=== PATIENT | female | born 1980 | race Caucasian/White ===

== ENCOUNTER 2017-10-17 15:39 | Inpatient (IN) | payer OTHER ==
[~2017-10-17] VITALS: Ht 167.6 cm; Wt 71.7 kg
--- NOTE | 2017-10-17 09:50 | MH ---
cc: Elena Babin MD DATE OF ADMISSION: 10/17/2017 REASON FOR ADMISSION: She is being admitted today for induction of labor due to decreased SAGRARIO. HISTORY OF PRESENT ILLNESS: She is 36 years old, 2, para 1-0-0-1, intrauterine at 40 weeks and 3 days. SAGRARIO was 6.6 cm. care has been with [facility]. Significant for thrombocytopenia. Last platelet count was 107. Her Group B Strep was negative. Her GCT was normal. PAST OBSTETRIC HISTORY: She had one vaginal delivery at 41 weeks in 2016. PAST GYNECOLOGIC HISTORY: She had a negative Pap smear in November of 2016. PAST MEDICAL HISTORY: She has a history of urinary tract infection, but denies hypertension, diabetes, or asthma. PAST SURGICAL HISTORY: She had eye surgery at the age of 13. SOCIAL HISTORY: She denies toxic habits. MEDICATIONS: She takes vitamins. ALLERGIES: SHE IS ALLERGIC TO ALOE, DIPHENHYDRAMINE, EMOXYPINE. PHYSICAL EXAMINATION: VITAL SIGNS: Stable. She is afebrile. Blood pressure is 100/62. She is 156 pounds. HEAD, HEART, CHEST, LUNG EXAMS: Within normal limits. ABDOMEN: Soft, nontender, gravid. PELVIC EXAM: The cervix is 1 cm dilated, 50 percent effaced, -1 station. EXTREMITIES: No cyanosis, clubbing or edema. ASSESSMENT AND PLAN: 1. She is a 36 years old, 2, para 1, intrauterine at 40 weeks, 3 days with a history of low amniotic fluid index of 6.6 cm. 2. Right breast mass, which will be followed . 3. Thrombocytopenia. She will be admitted for Cervidil cervical ripening. Risks, benefits, and alternatives have been explained. All of her questions have been answered. MD SHRUTI Burger/KETTY , 09:32 AM , 09:49 AM
[~2017-10-17 15:39] MED LIST: IBUP600 PO
[2017-10-17] MEDS ORDERED: PREN29TA PO (18:27)
[2017-10-17] MEDS ORDERED: LACTATED RINGER'S 1000 ML INJ 1,000 ML IV SCH (19:30)
[2017-10-17] MEDS ORDERED: SODIUM CHLORIDE 0.9% FLUSH 10 ML FLUSH IV FLUSH PRN ×2 (19:30)
[2017-10-17] MEDS ORDERED: DINOPROSTONE 10 MG INSERT-LEAVE FOR 12 HOURS VAGINAL ONE (19:30)
[2017-10-17] MEDS ORDERED: NS 1000 ML OTHER PRN (19:30)
[2017-10-17] MEDS ORDERED: PHARMACY INFORMATION OTHER NR (19:30)
[2017-10-17 22:01] LABS: HEMATOCRIT 38.2 % (35.0-46.0); HEMOGLOBIN 12.7 GM/DL (11.6-15.3); MEAN CELL VOLUME 87.2 FL (80.0-100.0); MEAN CORPUSCULAR HEMOGLOBIN 28.9 PG (27.0-34.0); MEAN CORPUSCULAR HGB CONC 33.1 % (32.0-36.0); MEAN PLATELET VOLUME 12.7 FL (7.0-11.0); PLATELET COUNT 109 TH/MM3 (150-450); RED BLOOD COUNT 4.39 MIL/MM3 (4.00-5.30); RED CELL DISTRIBUTION WIDTH 13.8 % (11.6-17.2); WHITE BLOOD COUNT 9.7 TH/MM3 (4.0-11.0)
[2017-10-17] MEDS ORDERED: ONDANSETRON ODT 4 MG TAB PO PRN (23:15)
[2017-10-17] MEDS ORDERED: OXYTOCIN 30 UNITS 500ML PREMIX IV ONE (23:15)
[2017-10-17] MEDS ORDERED: NS 1000 ML IV PRN (23:15)
[2017-10-17] MEDS ORDERED: CITRIC ACID-SODIUM CITRATE LIQ 30 ML UDC PO SCH (23:15)
[2017-10-17] MEDS ORDERED: LIDOCAINE HCL 1% 50 ML VIAL INFIL PRN (23:15)
[2017-10-17] MEDS ORDERED: LIDOCAINE HCL 1% 50 ML VIAL I-DERMAL PRN (23:15)
[2017-10-17] MEDS ORDERED: LACTATED RINGER'S 1000 ML IV SCH (23:15)
[2017-10-17] MEDS ORDERED: MINERAL OIL 10 ML VIAL TOPICAL PRN (23:15)
[2017-10-17] MEDS ORDERED: NS 500 ML BOLUS IV PRN (23:15)
[2017-10-17] MEDS ORDERED: LACTATED RINGER'S 1000 ML BOLUS IV PRN (23:15)
--- NOTE | 2017-10-18 08:57 | PD.LABORPN ---
Subjective Subjective pt comfortable Objective Vital Signs vss afeb Objective Pelvic Exam: Cervix: [-] Dilatation: [-] 2-3 Effacement: [-] 50 Station: [-] -1 Presentation: [-] vtx Membranes: [intact or ruptured] arom clear Uterine Contractions: [-] irreg FHT's: Category: [-] 1 Baseline: [-] Reactive: [-] R Variability: [-] Decels: [-] Weeks Gestation: 40 Gest Age Assessed Date: Oct 18, 2017 Gest Age Assessed Time: 08:56 Pt started active labor?: No Medical induction of labor?: Yes Medical induction start date: October 17, 2017 Medical induction start time: 21:00 Artificial rupture of membrane: Yes Artificial ROM date: Oct 18, 2017 Artifical ROM time: 07:40 Assessment/Plan Problem List: (1) state, incidental ICD Codes: Z33.1 - state, incidental Assessment and Plan 40 wks, thrombocytopenia, plts 109 arom , pit, analgesia prn, anticipate Elena Babin MD Oct 18, 2017 08:57
[2017-10-18] MEDS ORDERED: OXYTOCIN 30 UNITS-500ML PREMIX 500 ML IV PRN (09:00)
[2017-10-18] MEDS ORDERED: ePHEDrine/NS 25 MG/5 ML SYRINGE ONE (11:02)
[2017-10-18] MEDS ORDERED: fentaNYL 2MCG-BUPIV 0.125% INJ 150 ML EPIDURAL ONE (11:02)
[2017-10-18] MEDS ORDERED: LIDOCAINE 1.5%/EPINEPHrine 1:200,000 PF 5 ML AMP ONE (11:19)
[2017-10-18] MEDS ORDERED: NO SYSTEM NARCOTICS PRN (12:45)
[2017-10-18] MEDS ORDERED: DO NOT ADMINISTER ANTICOAGULANTS PRN (12:45)
[2017-10-18] MEDS ORDERED: fentaNYL 2MCG-BUPIV 0.125% 150 ML EPIDURAL PRN (12:45)
[2017-10-18] MEDS ORDERED: ePHEDrine/NS 25 MG/5 ML SYRINGE IV PUSH PRN (12:45)
[2017-10-18 15:15] LABS: BILIRUBIN, URINE NEG (NEG); BLOOD, URINE NEG (NEG); GLUCOSE,URINE NEG (NEG); KETONE, URINE 40 mg/dL (NEG); MUCUS URINE FEW /lpf (OCC); NITRITE,URINE NEG (NEG); SQUAMOUS EPITHELIAL CELL URINE 1 /hpf (0-5); URINE COLOR YELLOW (YELLW/STRAW); URINE LEUKOCYTE ESTERASE NEG (NEG)
--- NOTE | 2017-10-18 16:02 | PD.OB.DELI ---
Weeks gestation: 40 Gest age assessed date: Oct 18, 2017 Gest age assessed time: 08:56 Pt started active labor?: No Medical induction of labor?: Yes Medical induction start date: October 17, 2017 Medical induction start time: 21:00 Artificial rupture of membrane: Yes Artificial ROM date: Oct 18, 2017 Artifical ROM time: 07:40 Anesthesia: Epidural Episiotomy: None Vaginal Delivery: Normal Presentation: Occiput anterior (MARY BETH) Nuchal Cord: x1 Delayed cord clamping (45 sec): Yes : Male Delivery date: Oct 18, 2017 Delivery time: 15:35 One Minute : 7 Five Minute : 8 Placenta: Spontaneous delivery Laceration: 2 deg Repair: Chromic interrupted, Vicryl running Estimated blood loss: 300cc Elena Babin MD Oct 18, 2017 16:02
[2017-10-18] MEDS ORDERED: BENZOCAINE 20% TOPICAL SPRAY 60 ML CAN TOPICAL PRN (16:15)
[2017-10-18] MEDS ORDERED: DOCUSATE SODIUM 50 MG/SENNA 8.6 MG TAB PO PRN (16:15)
[2017-10-18] MEDS ORDERED: IBUPROFEN 800 MG TAB PO PRN (16:15)
[2017-10-18] MEDS ORDERED: SODIUM CHLORIDE 0.9% FLUSH 10 ML FLUSH IV FLUSH PRN (16:15)
[2017-10-18] MEDS ORDERED: ONDANSETRON ODT 4 MG TAB PO PRN (16:15)
[2017-10-18] MEDS ORDERED: ALUMINUM/MAGNESIUM/SIMETH 30 ML CUP PO PRN (16:15)
[2017-10-18] MEDS ORDERED: WITCH HAZEL 50%/GLYCERIN 12.5% 40 PAD JAR TOPICAL PRN (16:15)
[2017-10-18] MEDS ORDERED: ACETAMINOPHEN 325 MG TAB PO PRN (16:15)
[2017-10-18] MEDS ORDERED: OXYTOCIN 30 UNITS-500ML PREMIX 500 ML IV SCH (16:30)
[2017-10-18] MEDS ORDERED: MEASLES, MUMPS, RUBELLA VACCINE 0.5 ML VIAL SQ ONE (16:30)
[2017-10-18] MEDS ORDERED: DIPHTH/TETANUS/ACEL PERTUSSIS (BOOSTER) 0.5 ML VIAL/PFS IM ONE (16:30)
[2017-10-18] MEDS ORDERED: ZOLPIDEM TARTRATE 5 MG TAB PO PRN (21:00)
[2017-10-18] MEDS ORDERED: SODIUM CHLORIDE 0.9% FLUSH 10 ML FLUSH IV FLUSH SCH (21:00)
[2017-10-18 21:11] VITALS: BP 96/58; PULSE 95; RESP 18; TEMP 98.3
--- NOTE | 2017-10-19 09:04 | HHI.OB ---
Subjective Post Day: 1 Remarks doing well Objective Vitals/I&O Vital Signs Date Time Temp Pulse Resp B/P (MAP) Pulse Ox O2 Delivery O2 Flow Rate FiO2 10/18/17 21:11 98.3 95 18 96/58 (71) Objective Remarks GENERAL: Well-nourished, well-developed patient. CARDIOVASCULAR: Regular rate and rhythm without murmurs, gallops, or rubs. RESPIRATORY: Breath sounds equal bilaterally. No accessory muscle use. ABDOMEN/GI: Abdomen soft, non-tender. Fundus: Firm, non-tender at umbilicus. GENITOURINARY: Light to moderate bleeding. EXTREMITIES: No cyanosis or edema, non-tender, without signs of DVT. Medications and IVs Current Medications Medications (Trade) Dose Ordered Sig/Yung Route Start Time Stop Time Status Last Admin (NS Flush) 2 ml BID IV FLUSH 10/18/17 21:00 (NS Flush) 2 ml UNSCH PRN IV FLUSH 10/18/17 16:15 (Tylenol) 650 mg Q4H PRN PO 10/18/17 16:15 (Motrin) 800 mg Q8H PRN PO 10/18/17 16:15 (Americaine 20% Top Spr) 1 spray Q4H PRN TOPICAL 10/18/17 16:15 10/19/17 04:15 (Tucks Pads) 1 applic QID PRN TOPICAL 10/18/17 16:15 10/19/17 04:15 (Stella-Colace) 2 tab Q12H PRN PO 10/18/17 16:15 (Ambien) 5 mg HS PRN PO 10/18/17 21:00 (Mag-Al Plus Susp Liq) 15 ml Q8H PRN PO 10/18/17 16:15 (Zofran Odt) 4 mg Q6H PRN PO 10/18/17 16:15 Assessment/Plan Problem List: (1) state, incidental ICD Codes: Z33.1 - state, incidental (2) Thrombocytopenia affecting ICD Codes: O99.119 - Other diseases of the blood and blood-forming organs and certain disorders involving the immune mechanism complicating , unspecified trimester; D69.6 - Thrombocytopenia, unspecified (3) Vaginal delivery ICD Codes: O80 - Encounter for full-term uncomplicated delivery Assessment and Plan PPD #1 doing well, plts 109 wants to go home later today Discharge Planning routine Attending Attestation pt seen by me Elena Babin MD Oct 19, 2017 09:04
[2017-10-19] MEDS ORDERED: IBUP1TAB7 PO (09:05)
--- NOTE | 2017-10-19 09:05 | HHI.DCPOC ---
Discharge Care Plan Your Health Problems Are: Pelvic pain Report Symptoms to Your Doctor -Temperature above 100.5 degrees -Redness, of incision or excessive or foul smelling drainage -Unusual pain or calf pain -Increased vaginal bleeding -Painful or difficulty urinating -Feelings of extreme sadness or anxiety after 2 weeks Goals to Promote Your Health * To prevent worsening of your condition and complications * To maintain your health at the optimal level Directions to Meet Your Goals Take your medications as prescribed Follow your dietary instruction Follow activity as directed Ensure plenty of rest for recovery Drink fluids for hydration Keep your appointments as scheduled Take your immunizations and boosters as scheduled If your symptoms worsen call your PCP, if no PCP go to Urgent Care Center or Emergency Room Smoking is Dangerous to Your Health. Avoid second hand smoke Call the 24-hour crisis hotline for domestic abuse at Elena Babin MD Oct 19, 2017 09:05
== END 2017-10-19 20:40 | disposition home or self-care (01) | DRG 775 ==
LOC: H2EB 17:45 → H1EA 10-18 17:06
PROVIDERS: ADMIT Obstetrics & Gynecology; ATTEND Obstetrics & Gynecology
PROC: 3E0P7VZ Introduction of Hormone into Female Reproductive, Via Natural or Artificial Opening (ICD-10-PCS; 2017-10-17)
PROC: 10E0XZZ Delivery of Products of Conception, External Approach (ICD-10-PCS; principal; 2017-10-18)
PROC: 10907ZC Drainage of Amniotic Fluid, Therapeutic from Products of Conception, Via Natural or Artificial Opening (ICD-10-PCS; 2017-10-18)
DX: O99.12 Other diseases of the blood and blood-forming organs and certain disorders involving the immune mechanism complicating childbirth (principal); D69.6 Thrombocytopenia, unspecified; N63.10 Unspecified lump in the right breast, unspecified quadrant; O69.81X0 Labor and delivery complicated by cord around neck, without compression, not applicable or unspecified; Z3A.40 40 weeks gestation of pregnancy; Z37.0 Single live birth
CPT/HCPCS: 59025; 80307; 81001; 85027; 86900; 86901; G0481; J2590; J7120